=== PATIENT | female | born 1985 | race Caucasian/White ===

== ENCOUNTER 2021-07-02 21:53 | Emergency (ER) | payer MEDICAID ==
[~2021-07-02] VITALS: Ht 177.8 cm; Wt 100.0 kg
[~2021-07-02 21:53] MED LIST: ALBUTEROL0.83 MG/ML IH; AMOXICILLIN875 MG PO; BCP TD; CLINDAMYCIN HC300 MG PO; CRANBERRY1 CAP PO; DEPO-PROVER400 MG/ML IM; DUO-KAPS1 CAP PO; FOLIC ACID 11 MG/TA1 PO; LEVAQUIN 5500 MG/TA1 PO; LORTAB 5/500 501 TAB PO; MOTRIN800 MG PO; NAPROSYN500 MG PO; NICODERM C21 MG/PATC TOP; NO HOME MEDICATIONS; NORCO 325 MG-51 TAB PO; NORCO 325 MG-7.1 TAB PO; PHENERGAN 25 TA25 MG PO; ROXICODONE 55 MG/TAB PO; TYLENOL 500MG500 MG PO; VALIUM5 MG PO; ZITHROMAX Z PA250 MG PO
[2021-07-02 21:57] VITALS: TEMP 98.8
[2021-07-02 22:53] VITALS: BP 118/70; PULSE 91
[2021-07-02 23:33] LABS: BASO # 0.1 (0.0-0.2); BASO % 0.5 % (0.0-2.0); EOS # 0.1 (0.0-0.7); EOS % 0.8 % (0-4.0); GRAN # 10.2 (1.4-6.5); GRAN % 76.3 % (42.2-75.2); HEMATOCRIT 42.3 % (37.0-47.0); HEMOGLOBIN 14.1 g/dl (12.5-16.0); LYMPH # 1.9 (1.2-3.4); MEAN CELL VOLUME 93 fl (80.0-100.0); MEAN CORPUSCULAR HEMOGLOBIN 31 pg (27.0-31.0); MEAN CORPUSCULAR HGB CONC 33 g/dl (33.0-37.0); MEAN PLATELET VOLUME 10.4 fl (7.4-10.4); MONO # 1.1 (0.1-0.6); MONO % 8.2 % (1.7-9.3); PLATELET COUNT 275 K/mm3 (130-400); RED BLOOD COUNT 4.56 M/mm3 (4.10-5.30); REDCELL DISTRIBUTION WIDTH-CV 13.1 % (11.5-14.5)
[2021-07-02 23:44] LABS: ALANINE AMINOTRANSFERASE 26 U/L (4-34); ALBUMIN 4.6 gm/dL (3.5-5.0); ALKALINE PHOSPHATASE 74 U/L (50-136); ANION GAP 11 mmol/L (7-16); AST,SGOT 25 U/L (15-37); BILIRUBIN,TOTAL 0.8 mg/dL (0.0-1.0); BLOOD UREA NITROGEN 12 mg/dL (7-17); CALCIUM 9.1 mg/dL (8.4-10.2); CARBON DIOXIDE 22 mmol/L (22-30); CHLORIDE 104 mmol/L (98-107); CREATININE, serum 1.14 (0.52-1.25); GLUCOSE 100 mg/dL (74-106); POTASSIUM 4.1 mmol/L (3.4-5.0); SODIUM 137 mmol/L (137-145); TOTAL PROTEIN 7.9 gm/dL (6.4-8.2)
[2021-07-03 00:01] LABS: TROPONIN-I < 0.012 ng/mL (0.000-0.035)
== END 2021-07-02 22:53 | disposition home or self-care (01) ==
LOC: COL.ER 21:53
PROVIDERS: Physician Assistant
DX: B34.9 Viral infection, unspecified (principal)
CPT/HCPCS: J0780; J1885